=== PATIENT | male | born 1980 | race Caucasian/White ===

== ENCOUNTER 2018-08-04 15:37 | Emergency (ER) | payer BC, OTHER ==
[2018-08-04] MEDS ORDERED: Acetaminophen 500 MG TAB ONE (16:06)
--- NOTE | 2018-08-04 16:32 | RAD ---
RIGHT TIBIA AND FIBULA AP AND LATERAL IMAGES WERE OBTAINED FOR A TOTAL OF FOUR IMAGES: Indications: Injury with pain. FINDINGS: There is soft tissue swelling at the ankle. No fracture or acute osseous abnormality identified. IMPRESSION: No acute osseous abnormality. POS: BERNIE
--- NOTE | 2018-08-04 16:58 | ULT ---
VENOUS DOPPLER ULTRASOUND OF THE RIGHT LOWER EXTREMITY 08/04/18 HISTORY: Right leg edema, injury. TECHNIQUE: Zacarias scale ultrasound with color flow and spectral doppler imaging of the deep venous system of the r ight lower extremity was performed. FINDINGS: There is good flow, compression and augmentation noted in the right common femoral, femoral, deep fem oral, popliteal, posterior tibial and greater saphenous veins. IMPRESSION: No evidence of DVT in the right lower extremity. POS: OFF
== END 2018-08-04 17:00 | disposition home or self-care (01) ==
LOC: SCSER 15:37
DX: S80.11XA Contusion of right lower leg, initial encounter (principal); Z79.899 Other long term (current) drug therapy; X58.XXXA Exposure to other specified factors, initial encounter

== ENCOUNTER 2018-12-14 07:28 | Outpatient (CLI) | payer BC, OTHER ==
--- NOTE | 2018-12-14 08:51 | ULT ---
ULTRASOUND ABDOMEN: Date: 12/14/18 HISTORY: Right upper quadrant pain and nausea. FINDINGS: The liver, spleen, gallbladder, kidneys, and visualized portions of the aorta and IVC appear normal. The pancreas is not visualized due to overlying bowel gas. No free fluid is seen. The common duct sameer sures 3 mm in diameter. IMPRESSION: Nonvisualization of the pancreas, otherwise unremarkable exam. POS: OFF
--- NOTE | 2018-12-14 14:36 | CT ---
CORONARY CT CALCIUM SCORIN12/14/18 HISTORY: Chest pain. Patient has a defibrillator and history of sarcoidosis. FINDINGS: The total coronary artery calcium score using the Agatston-130 method is 46. LM: 0 RCA: 0 LAD: 46 LCX: 0 PDA: 0 Total: 46 There are calcified lymph nodes in the mediastinum and hilar regions. No pleural or pericardial effus ions are seen. There is no evidence of aneurysmal dilatation of the thoracic aorta. There is micronod ularity in the right perihilar region. This should be evaluated with dedicated CT scan of the chest. IMPRESSION: 1. Total coronary artery calcium score is 46. 2. Dedicated CT scan of the chest is recommended to evaluate micronodularity in the right perihi lar lung. POS: OFF
== END 2018-12-14 07:29 | disposition home or self-care (01) ==
LOC: BICULT 07:28
PROVIDERS: ATTEND Family Medicine
DX: I10 Essential (primary) hypertension (principal); D86.9 Sarcoidosis, unspecified; R10.11 Right upper quadrant pain; R91.1 Solitary pulmonary nodule; Z86.74 Personal history of sudden cardiac arrest
CPT/HCPCS: 75571; 76700